=== PATIENT | female | born 1970 | race Caucasian/White ===

== ENCOUNTER 2017-09-30 16:29 | Emergency (ER) | payer OTHER ==
[~2017-09-30] VITALS: Ht 175.3 cm; Wt 105.6 kg
[~2017-09-30 16:29] MED LIST: BACTRIM,SEPT1 TABLET PO
[2017-09-30] MEDS ORDERED: PREDNISONE20 MG PO (17:33)
[2017-09-30] MEDS ORDERED: PERCOCET 5/31 TABLET PO (17:33)
[2017-09-30 18:07] VITALS: BP 122/95
== END 2017-09-30 18:10 | disposition home or self-care (01) ==
LOC: EME 16:29
DX: M54.5 Low back pain (principal); E11.40 Type 2 diabetes mellitus with diabetic neuropathy, unspecified; I10 Essential (primary) hypertension; D86.9 Sarcoidosis, unspecified; Z88.5 Allergy status to narcotic agent
CPT/HCPCS: 99281; 99284; J8540